=== PATIENT | female | born 1985 | race Caucasian/White ===

== ENCOUNTER 2019-09-14 13:22 | Emergency (ER) | payer BC, SELFPAY ==
[2019-09-14 13:30] VITALS: BP 158/98; PULSE 78; RESP 16; TEMP 36.8; O2SAT 98; BMI 44.4
[2019-09-14 14:59] LABS: Basophils # 0.1 10^3/uL (0.0-0.1); Eosinophils # 0.4 10^3/uL (0.0-0.8); Eosinophils % 3.6 %; Hematocrit 43.5 % (37.0-47.0); Hemoglobin 13.4 g/dL (11.5-15.3); Lymphocytes # 2.2 10^3/uL (0.8-4.8); Lymphocytes % 21.2 %; Mean Corpuscular HGB Conc 30.8 g/dL (30.0-36.0); Mean Corpuscular Hemoglobin 25.7 pg (28.0-34.0); Mean Corpuscular Volume 83.3 fL (81-99); Mean Platelet Volume 9.6 fL (7.4-10.4); Monocytes # 0.5 10^3/uL (0.2-0.9); Monocytes % 4.9 %; Neutrophils # 7.3 10^3/uL (1.8-7.7); Nucleated Red Blood Cells % 0 %; Platelet Count 401 10^3/cmm (130-400); Red Blood Count 5.22 10^6/uL (4.1-5.3); Red Cell Distribution Width 13.4 % (12.1-15.1); White Blood Count 10.5 10^3/uL (4.0-10.0)
--- NOTE | 2019-09-14 15:06 | CTR_ITS ---
PROCEDURE INFORMATION: Exam: CT Abdomen And Pelvis Without Contrast Exam date and time: 09/14/2019 3:09 PM Age: 33 years old Clinical indication: Abdominal pain; Flank; Left; Additional info: Pain left flank, hematuria TECHNIQUE: Imaging protocol: Computed tomography of the abdomen and pelvis without contrast. Total DLP: 1905.81 mGy-cm Radiation optimization: All CT scans at this facility use at least one of these dose optimization techniques: automated exposure control; mA and/or kV adjustment per patient size (includes targeted exams where dose is matched to clinical indication); or iterative reconstruction. COMPARISON: No relevant prior studies available. FINDINGS: Liver: No mass. Gallbladder and bile ducts: Unremarkable. No ductal dilation. Pancreas: Normal. No ductal dilation. Spleen: Normal. No splenomegaly. Adrenals: Normal. No mass. Kidneys and ureters: No calculus or hydronephrosis. Stomach and bowel: No acute findings. No obstruction. No mucosal thickening. Appendix: No evidence of appendicitis. Intraperitoneal space: Unremarkable. No free air. No significant fluid collection. Vasculature: No abdominal aortic aneurysm. Lymph nodes: No significant retroperitoneal adenopathy. Small right lower quadrant mesenteric lymph nodes, none larger than approximately 1 cm. Bladder: Unremarkable as visualized. Reproductive: Unremarkable as visualized. Bones/joints: No acute findings. Soft tissues: Unremarkable. CT/CT kidney stone [id number] IMPRESSION: No acute findings. Radiation Dose CTDIVOL = (mGy): DLP = 1905.81 (mGy-cm)
[2019-09-14 15:19] LABS: Alanine Aminotransferase 15 U/L (0-33); Albumin Level 4.6 g/dL (3.5-5.2); Alkaline Phosphatase 94 IU/L (35-105); Anion Gap 16.1 (5-19); Aspartate Amino Transferase 12 U/L (0-32); Blood Urea Nitrogen 17 mg/dL (6-20); Calcium 9.7 mg/dL (8.5-10.5); Carbon Dioxide 25 mmol/L (22-29); Chloride 99 mmol/L (98-107); Globulin 3.6 g/dL (1.3-4.6); Glomerular Filtration Rate 114.4 mL/min (90-130); Glucose 87 mg/dL (65-115); Potassium 4.1 mmol/L (3.5-5.1); Sodium 136 mmol/L (136-145); Total Bilirubin 0.3 mg/dL (0.15-1.2); Total Protein 8.2 g/dL (6.6-8.7)
[2019-09-14] MEDS: ondansetron 2 mg/ML SDV 2 mL 4 MG IVP (15:19)
[2019-09-14] MEDS: sodium chloride 0.9% 1,000 ML 999 ML IV (15:19)
[2019-09-14] MEDS: ketorolac 30 mg/mL INJ IVP (15:19)
--- NOTE | 2019-09-14 15:19 | ED_ITS ---
HPI - General Adult General: Chief complaint: Abdominal Pain Stated complaint: possible kidney stone Time Seen by Provider: 09/14/19 15:02 History of Present Illness: HPI narrative: Patient complains of left flank pain since yesterday. Went to the urgent care today and they found blood in her urine and she is not on her menses. Pain gnawing in her left flank. Has been on antibiotics recently for upper respiratory infection. Recently had a history of group B strep vaginal infection was treated on antibiotics for 6 weeks. MD complaint: Left flank pain Onset (ago): day(s) (1 and half days) Location: back Radiation: non-radiation Severity: severe Severity scale (1-10): 8 Quality: stabbing and aching Pain Consistency: colicky Relieving factors: none Associated symptoms: Deny chest pain, dyspnea, fevers/chills, headache(s), nausea or rash Review of Systems Const: Denies: fever, chills or body aches Eyes: Denies: change in vision or blurry vision ENMT: Denies: throat pain or nasal congestion Card: Denies: chest pain or shortness of breath on exertion Resp: Denies: shortness of breath, productive cough or non-productive cough GI: Reports: other (Flank pain left side); Denies: nausea Musc: Denies: extremity pain Skin/Breast: Denies: rash Neuro: Denies: headache Psych: Denies: anxiety or depression Holland/Lymph: Denies: easy bruising PFS ED PFSH: Social History (Updated 09/11/19 @ 09:16 by Mily Kim LPN) Smoking and tobacco status: former smoker Second hand smoke exposure: No Physical Exam Const: COMMON NORMALS: no apparent distress, average body habitus and oriented x3 HENMT: COMMON NORMALS: normocephalic HEAD & SCALP: normal to inspection and normocephalic FACE & SINUS: normal facial exam Eye: COMMON NORMALS: conjunctivae normal GENERAL EYE: normal appearance of both eyes CONJUNCTIVA: Yes conjunctivae normal Neck/C-Spine: COMMON NORMALS: no JVD Chest: COMMONS NORMALS: inspection of chest normal Resp: COMMON NORMALS: normal respiratory effort and clear to auscultation b ilaterally AUSCULTATION: clear to auscultation bilaterally Cardio: COMMON NORMALS: no JVD, regular rate and regular rhythm RATE: regular rate RHYTHM: regular rhythm GI: COMMON NORMALS: normal to inspection, nondistended, normoactive bowel sounds Back/Pelvis: OTHER: tenderness to percussion left flank Extremity: COMMON NORMALS: normal to inspection and full ROM Neuro: COMMON NORMALS: oriented x3 Course Vital Signs: Vital signs: Vital Signs Temperature 98.3 F 09/14/19 13:30 Pulse Rate 78 09/14/19 13:30 Respiratory Rate 16 09/14/19 13:30 Blood Pressure 158/98 09/14/19 13:30 Pulse Oximetry 98 09/14/19 13:30 MDM - General Adult MDM Narrative: Medical decision making narrative: Patient states she is doing much better since she has had her Toradol injection. She now relates that that she have a history of back pain bulging disc. And this thinks she might injure that doing some lifting. She is to follow-up with [facility] over [facility] no heavy lifting. Lab Data: Labs: Lab Results 09/14/19 09/14/19 09/14/19 Range/Units 14:49 14:49 15:25 WBC 10.5 H (4.0-10.0) 10^3/ uL RBC 5.22 (4.1-5.3) 10^6/u L Hgb 13.4 (11.5-15.3) g/dL Hct 43.5 (37.0-47.0) % MCV 83.3 (81-99) fL MCH 25.7 L (28.0-34.0) pg MCHC 30.8 (30.0-36.0) g/dL RDW 13.4 (12.1-15.1) % Plt Count 401 H (130-400) 10^3/c mm MPV 9.6 (7.4-10.4) fL Neut % (Auto) 69.0 % Lymph % (Auto) 21.2 % [place] % (Auto) 4.9 % Eos % (Auto) 3.6 % Baso % (Auto) 1.0 % Neut # (Auto) 7.3 (1.8-7.7) 10^3/u L Lymph # (Auto) 2.2 (0.8-4.8) 10^3/u L [place] # (Auto) 0.5 (0.2-0.9) 10^3/u L Eos # (Auto) 0.4 (0.0-0.8) 10^3/u L Baso # (Auto) 0.1 (0.0-0.1) 10^3/u L Nucleated RBC % (a uto) 0 % Nucleated RBCs # 0.0 /100WBC Sodium 136 (136-145) mmol/L Potassium 4.1 (3.5-5.1) mmol/L Chloride 99 (98-107) mmol/L Carbon Dioxide 25 (22-29) mmol/L Anion Gap 16.1 (5-19) BUN 17 (6-20) mg/dL Creatinine 0.6 (0.5-0.9) mg/dL GFR Calculation 114.4 (90-130) mL/min Glucose 87 (65-115) mg/dL Calcium 9.7 (8.5-10.5) mg/dL Total Bilirubin 0.3 (0.15-1.2) mg/dL AST 12 (0-32) U/L ALT 15 (0-33) U/L Alkaline Phosphata se 94 (35-105) IU/L Total Protein 8.2 (6.6-8.7) g/dL Albumin 4.6 (3.5-5.2) g/dL Globulin 3.6 (1.3-4.6) g/dL HCG, Qual Negative (Negative) Urine Color (Yellow) Urine Appearance (CLEAR) Urine pH (5-7) Ur Specific Gravit y (1.005-1.030) Urine Protein (Negative) Urine Glucose (UA) (Normal) Urine Ketones (Negative) Urine Blood (Negative) Urine Nitrate (Negative) Urine Bilirubin (NEGATIVE) Urine Urobilinogen (Negative) mg/dL Ur Leukocyte Jie ase (Negative) Urine RBC (0-2) /hpf Urine WBC (0-5) /hpf Ur Squamous Epith Cells (0-5) Urine Bacteria (NONE) 09/14/19 Range/Units 15:25 WBC (4.0-10.0) 10^3/ uL RBC (4.1-5.3) 10^6/u L Hgb (11.5-15.3) g/dL Hct (37.0-47.0) % MCV (81-99) fL MCH (28.0-34.0) pg MCHC (30.0-36.0) g/dL RDW (12.1-15.1) % Plt Count (130-400) 10^3/c mm MPV (7.4-10.4) fL Neut % (Auto) % Lymph % (Auto) % [place] % (Auto) % Eos % (Auto) % Baso % (Auto) % Neut # (Auto) (1.8-7.7) 10^3/u L Lymph # (Auto) (0.8-4.8) 10^3/u L [place] # (Auto) (0.2-0.9) 10^3/u L Eos # (Auto) (0.0-0.8) 10^3/u L Baso # (Auto) (0.0-0.1) 10^3/u L Nucleated RBC % (a uto) % Nucleated RBCs # /100WBC Sodium (136-145) mmol/L Potassium (3.5-5.1) mmol/L Chloride (98-107) mmol/L Carbon Dioxide (22-29) mmol/L Anion Gap (5-19) BUN (6-20) mg/dL Creatinine (0.5-0.9) mg/dL GFR Calculation (90-130) mL/min Glucose (65-115) mg/dL Calcium (8.5-10.5) mg/dL Total Bilirubin (0.15-1.2) mg/dL AST (0-32) U/L ALT (0-33) U/L Alkaline Phosphata se (35-105) IU/L Total Protein (6.6-8.7) g/dL Albumin (3.5-5.2) g/dL Globulin (1.3-4.6) g/dL HCG, Qual (Negative) Urine Color Yellow (Yellow) Urine Appearance Clear (CLEAR) Urine pH 5 (5-7) Ur Specific Gravit y 1.015 (1.005-1.030) Urine Protein Neg (Negative) Urine Glucose (UA) Norm (Normal) Urine Ketones Negative (Negative) Urine Blood 2+ H (Negative) Urine Nitrate Negative (Negative) Urine Bilirubin Neg (NEGATIVE) Urine Urobilinogen Norm (Negative) mg/dL Ur Leukocyte Jie ase Negative (Negative) Urine RBC 0-4 H (0-2) /hpf Urine WBC None (0-5) /hpf Ur Squamous Epith Cells 5-10 H (0-5) Urine Bacteria Trace (NONE) Discharge Plan Discharge Patient Disposition: Home, Self-Care Clinical Impression: Back pain Qualifiers: Back pain location: low back pain Chronicity: acute Back pain laterality: left Sciatica presence: with sciatica Sciatica laterality: sciatica of left side Qualified Code(s): M54.42 - Lumbago with sciatica, left side Condition: Stable Prescriptions: New ketorolac 10 mg tablet 10 mg PO Q8H PRN (Reason: pain) 5 Days Qty: 14 RF: 0 No Action amoxicillin 500 mg capsule 500 mg PO Q8H 10 Days Qty: 30 RF: 0 albuterol sulfate 90 mcg/actuation HFA aerosol inhaler 2 inh INHALATION Q4H PRN (Reason: shortness of breath or wheezing) Qty: 18 RF: 2 albuterol sulfate 1.25 mg/3 mL solution for nebulization 1.25 mg INHALATION QID PRN (Reason: shortness of breath or wheezing) Qty: 75 RF: 1 Discharge Orders: Discharge Order (Routine); Ordered 09/14/19 Ordered By: Nathan Huber Referrals: Teri Elliott FNP [Primary Care Provider] - Discharge Diet: Usual diet Discharge Activity: Increase activity as tolerated Patient Instructions: Back Pain (ED) Activity Restrictions/Additional Instructions: Follow-up with medical provider as directed. Take medications as prescribed. Return to the ER or your medical provider if condition worsens. Please read and understand discharge instructions. If any questions ask please. Follow-up clinic [place] concerning her back if it does not improve. Coding Level of Care Code ED Hand Ii Blocker for Jettg Fwd Exam Comprehensive
[2019-09-14 15:33] LABS: Bilirubin Urine Neg (NEGATIVE); Blood Urine 2+ (Negative); Glucose Urine UA Norm (Normal); HCG Qualitative Urine. Negative (Negative); Ketones Urine Negative (Negative); Leukocyte Esterase Urine Negative (Negative); Nitrate Urine Negative (Negative); Protein Urine Neg (Negative); Specific Gravity, Urine 1.015 (1.005-1.030); Urine Appearance Clear (CLEAR); Urine Color Yellow (Yellow); Urobilinogen Urine Norm (Negative); pH Urine 5 (5-7)
[2019-09-14 15:40] LABS: Bacteria Urine TRACE; RBC Urine 0-4 /hpf (0-2)
[2019-09-14 15:41] LABS: Add Urine Culture? No
[2019-09-14 17:14] VITALS: BP 128/93; PULSE 75; RESP 18; TEMP 36.4; O2SAT 95
== END 2019-09-14 17:16 | disposition home or self-care (01) ==
PROVIDERS: Emergency Medicine; Emergency Provider Nurse Practitioner Family; PCP Nurse Practitioner Family
DX: M54.9 Dorsalgia, unspecified (principal); Z87.891 Personal history of nicotine dependence
CPT/HCPCS: 36415; 74176; 80053; 81001; 81003; 81025; 85025; 96360; 96361; 96374; 96375; 99283; A9270; J1885; J2405; J7030

== ENCOUNTER 2019-09-20 14:46 | Outpatient (CLI) | payer BC, SELFPAY ==
--- NOTE | 2019-09-20 14:58 | XR_ITS ---
WS: [id number] Lumbar spine, 3 views, 09/20/2019 Clinical Data: back pain Comparison: None. Findings: No compression fractures or subluxation is seen. No disc space narrowing is seen. The transverse proc esses and SI joints are normal. XR/XR lumbar spine 2-3V* [id number] Impression: Negative lumbar spine.
== END 2019-09-20 14:47 | disposition home or self-care (01) ==
LOC: RAD 14:49
PROVIDERS: PCP Nurse Practitioner Family; Visit Provider Nurse Practitioner Family
DX: S39.012A Strain of muscle, fascia and tendon of lower back, initial encounter (principal); X58.XXXA Exposure to other specified factors, initial encounter
CPT/HCPCS: 72100

== ENCOUNTER → 2020-06-30 15:36 | Outpatient (BNVA) | payer BC, SELFPAY | PROVIDERS: Family Provider Nurse Practitioner Family; PCP Nurse Practitioner Family; Visit Provider Nurse Practitioner Family | DX: M54.9 Dorsalgia, unspecified (principal) | CPT/HCPCS: 81000 ==

== ENCOUNTER 2020-09-14 13:58 | Emergency (ER) | payer BC, SELFPAY ==
--- NOTE | 2020-09-14 14:01 | ECG_ITS ---
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 Measurements Intervals [place] Rate: 73 P: -14 CO: 131 QRS: 14 QRSD: 89 T: -7 QT: 387 QTc: 428 Interpretive Statements SINUS RHYTHM No previous ECG available for comparison Electronically Signed On 09-15-2020 5:56:42 CHOCOLATE MAKER by Elizabeth Woodward M.D. [email or web address]
--- NOTE | 2020-09-14 14:01 | XR_ITS ---
WS: [id number] Exam: XR chest 1V portable [id number] Date/Time of Exam: 09/14/2020 2:01 PM Reason For Exam: chest pain No priors. Findings: The lungs are clear and fully expanded. Costophrenic angles are sharp. No infiltrates. Bronchovascula r relief appears normal. Cardiac silhouette is unremarkable. Bony elements are intact. XR/XR chest 1V portable [id number] IMPRESSION: Unremarkable chest radiograph.
[2020-09-14 14:27] VITALS: BP 135/89; PULSE 79; RESP 14; TEMP 36.5; O2SAT 99; BMI 47.9
--- NOTE | 2020-09-14 15:51 | ED_ITS ---
HPI - Chest Pain General: Chief Complaint: Chest Pain Stated Complaint: Chest pain, SOB, pain in left arm Time Seen by Provider: 09/14/20 15:51 Source: patient Mode of arrival: ambulatory Limitations: no limitations History of Present Illness: HPI narrative: Patient is a nice 34-year-old female who presents to ED today along with her for complaints of some left arm pain and chest pain. Patient tells me yesterday she began noticing a burning sensation to her left shoulder and left upper arm. She states she had not had any injury or trauma to the arm. She denies neck pain. She states pain seems to be worse with range of motion of her shoulder. She also later that evening began noticing some tightness on both sides of her chest. Patient tells me she does have a history of asthma and is not sure symptoms are related to that. She tells me she is on albuterol and antibiotics for asthma exacerbation/bronchitis. Patient was seen by PCP today for the arm pain and referred to the emergency department for cardiac rule out. Patient denies any previous cardiac or pulmonary history apart from the asthma. She has not noticed any redness, swelling, temperature changes to her upper extremity. She has not been running fevers. She denies any difficulty breathing. MD complaint: chest pain and other (L arm pain) Onset (ago): day(s) (yesterday) Timing of current episode: constant Prior episodes: No Onset: during rest Pain location: left chest and right chest Pain radiation: left arm Severity: mild Quality: tightness Relieving factors: nothing Associated symptoms: Reports no associated symptoms and dyspnea; Deny abdominal pain, fever(s), nausea, palpitations, syncope or vomiting Treatment prior to arrival: aspirin Review of Systems Const: Denies: fever(s), chills, body aches, fatigue or malaise Eyes: Denies: change in vision or blurry vision Card: Reports: chest pain; Denies: palpitations, irregular heart rhythm, edema, swelling of feet/ankles, lightheadedness, syncope, pre-syncope, dyspnea on exertion, orthopnea, leg pain with exertion or acrocyanosis Resp: Reports: dyspnea and non-productive cough; Denies: wheezing or hemoptysis GI: Denies: abdominal pain, nausea, vomiting or diarrhea Musc: Reports: extremity pain (L arm/shoulder) and joint pain; Denies: neck pain, back pain, extremity swelling or joint swelling Skin/Breast: Denies: rash Neuro: Denies: headache(s), numbness in extremities, weakness in extremities or sensory changes PFSH ED PFSH: Medical History Asthma Social History Smoking and tobacco status: former smoker Second hand smoke exposure: No Physical Exam Const: COMMON NORMALS: no acute distress, patient oriented x3, no limitations and alert GENERAL APPEARANCE: cooperative NUTRITIONAL APPEARANCE: obese ORIENTATION/CONSCIOUSNESS: Yes awake, Yes oriented to person, Yes oriented to place and Yes oriented to time HENMT: COMMON NORMALS: normocephalic and atraumatic HEAD & SCALP: normocephalic and atraumatic Neck/C-Spine: COMMON NORMALS: full ROM, no lymphadenopathy and no meningeal signs CERVICAL SPINE: Yes cervical ROM normal, No pain with cervical ROM, No Cervical spine tenderness and No Paracervical muscle tenderness OTHER: negative Spurling's Chest: COMMONS NORMALS: normal inspection of the chest and normal palpation of entire chest wall Resp: COMMON NORMALS: normal respiratory effort and clear to auscultation bilaterally AUSCULTATION: clear to auscultation bilaterally Cardio: COMMON NORMALS: regular rate and regular rhythm RATE: regular rate RHYTHM: regular rhythm Extremity: COMMON NORMALS: normal to inspection and full ROM NARRATIVE EXTREMITY EXAM: has some mild tenderness to glenohumeral joint; has full ROM but does elicit some pain; there is no swelling/redness noted; pulses and cap refill normal GENERAL: Yes normal exam except as noted Neuro: COMMON NORMALS: patient oriented x3, moves all extremities, no focal motor deficits and no sensory deficits noted SENSORIUM/ORIENTATION: Yes alert, Yes oriented to person, Yes oriented to place and Yes oriented to time MENINGEAL SIGNS: Yes no meningeal signs Skin: COMMON NORMALS: no rashes or lesions noted GENERAL SKIN EXAM: no rashes or lesions noted Course Vital Signs: Vital signs: Vital Signs Temperature 97.7 F 09/14/20 14:27 Pulse Rate 71 09/14/20 17:15 Respiratory Rate 20 H 09/14/20 17:15 Blood Pressure 144/72 09/14/20 17:15 Pulse Oximetry 99 09/14/20 17:15 MDM - Chest Pain MDM Narrative: Medical decision making narrative: Patient's work-up here is benign. Her lab work is non-concerning. Baseline troponin is normal. Given length between onset of symptoms, we do not need to keep patient here for repeat. Patient's initial EKG and repeat EKG showed no ischemic changes. Her CXR is normal. She has a heart score of 1 (risk factor of obesity). Patient is stable for DC with return to ED precautions. She agrees to followup with PCP at this time. Lab Data: Labs: Lab Results 09/14/20 09/14/20 09/14/20 Range/Units 16:12 16:12 16:12 WBC 9.8 (4.0-10.0) 10^3/ uL RBC 4.72 (4.1-5.3) 10^6/u L Hgb 12.7 (11.5-15.3) g/dL Hct 40.8 (37.0-47.0) % MCV 86.4 (81-99) fL MCH 26.9 L (28.0-34.0) pg MCHC 31.1 (30.0-36.0) g/dL RDW 14.2 (12.1-15.1) % Plt Count 367 (130-400) 10^3/c mm MPV 9.7 (7.4-10.4) fL Neut % (Auto) 68.3 % Lymph % (Auto) 20.9 % [place] % (Auto) 5.9 % Eos % (Auto) 3.6 % Baso % (Auto) 1.1 % Neut # (Auto) 6.68 (1.8-7.7) 10^3/u L Lymph # (Auto) 2.1 (0.8-4.8) 10^3/u L [place] # (Auto) 0.6 (0.2-0.9) 10^3/u L Eos # (Auto) 0.4 (0.0-0.8) 10^3/u L Baso # (Auto) 0.1 (0.0-0.1) 10^3/u L Nucleated RBC % (a uto) 0 % Nucleated RBCs # 0.0 /100WBC Sodium 138 (136-145) mmol/L Potassium 4.1 (3.5-5.1) mmol/L Chloride 104 (98-107) mmol/L Carbon Dioxide 26 (22-29) mmol/L Anion Gap 12.1 (5-19) BUN 17 (6-20) mg/dL Creatinine 0.5 (0.5-0.9) mg/dL GFR Calculation 140.4 H (90-130) mL/min Glucose 86 (65-115) mg/dL Calculated Osmolal ity 287 (285-295) mOsm/k g Calcium 9.1 (8.5-10.5) mg/dL Total Bilirubin 0.2 (0.15-1.2) mg/dL AST 13 (0-32) U/L ALT 19 (0-33) U/L Alkaline Phosphata se 75 (35-105) IU/L Troponin T Baselin e (0-10) ng/L Total Protein 7.0 (6.6-8.7) g/dL Albumin 4.4 (3.5-5.2) g/dL Globulin 2.6 (1.3-4.6) g/dL HCG, Qual Negative (Negative) 09/14/20 Range/Units 16:12 WBC (4.0-10.0) 10^3/ uL RBC (4.1-5.3) 10^6/u L Hgb (11.5-15.3) g/dL Hct (37.0-47.0) % MCV (81-99) fL MCH (28.0-34.0) pg MCHC (30.0-36.0) g/dL RDW (12.1-15.1) % Plt Count (130-400) 10^3/c mm MPV (7.4-10.4) fL Neut % (Auto) % Lymph % (Auto) % [place] % (Auto) % Eos % (Auto) % Baso % (Auto) % Neut # (Auto) (1.8-7.7) 10^3/u L Lymph # (Auto) (0.8-4.8) 10^3/u L [place] # (Auto) (0.2-0.9) 10^3/u L Eos # (Auto) (0.0-0.8) 10^3/u L Baso # (Auto) (0.0-0.1) 10^3/u L Nucleated RBC % (a uto) % Nucleated RBCs # /100WBC Sodium (136-145) mmol/L Potassium (3.5-5.1) mmol/L Chloride (98-107) mmol/L Carbon Dioxide (22-29) mmol/L Anion Gap (5-19) BUN (6-20) mg/dL Creatinine (0.5-0.9) mg/dL GFR Calculation (90-130) mL/min Glucose (65-115) mg/dL Calculated Osmolal ity (285-295) mOsm/k g Calcium (8.5-10.5) mg/dL Total Bilirubin (0.15-1.2) mg/dL AST (0-32) U/L ALT (0-33) U/L Alkaline Phosphata se (35-105) IU/L Troponin T Baselin e 6 (0-10) ng/L Total Protein (6.6-8.7) g/dL Albumin (3.5-5.2) g/dL Globulin (1.3-4.6) g/dL HCG, Qual (Negative) Imaging Data^: CXR: Radiologist's impression: [address] [address] XRay Report Signed Patient: Ann Ovalles Unit #: [id number] : 1985 Age/Sex: 34 / F ADM Date: 09/14/20 Loc: ER Room/Bed: Attending Dr: Ordering Provider/Ordering MD: Noemí Calixto Date of Service: 09/14/20 Procedure(s): XR chest 1V portable [id number] Accession Number(s): [id number] Report Number: [id number] WS: [id number] Exam: XR chest 1V portable [id number] Date/Time of Exam: 09/14/2020 2:01 PM Reason For Exam: chest pain No priors. Findings: The lungs are clear and fully expanded. Costophrenic angles are sharp. No infiltrates. Bronchovascular relief appears normal. Cardiac silhouette is unremarkable. Bony elements are intact. XR/XR chest 1V portable [id number] IMPRESSION: Unremarkable chest radiograph. Dictated By: Campos Chairez DO Signed By: Campos Chairez DO Signed Date/Time: 09/14/20 1433 DD/ 1433 EKG Data^: EKG 1: EKG interpretation date: 09/14/20 EKG interpretation time: 16:19 Interpretation: Sinus rhythm Rate [address] elevation noted EKG was initially signed off by Dr. Cantu upon completion EKG 2: EKG interpretation date: 09/14/20 EKG interpretation time: 16:17 Interpretation: Sinus rhythm No ST/ischemic changes noted No changes from EKG performed earlier on same visit Discharge Plan Discharge Patient Disposition: Home Clinical Impression: Atypical chest pain Condition: Stable Prescriptions: No Action albuterol sulfate 90 mcg/actuation HFA aerosol inhaler 2 inh INHALATION Q4H PRN (Reason: shortness of breath or wheezing) Qty: 18 RF: 2 doxycycline hyclate 100 mg tablet 100 mg PO BID 10 Days Qty: 20 RF: 0 albuterol sulfate 1.25 mg/3 mL solution for nebulization 1.25 mg INHALATION QID PRN (Reason: shortness of breath or wheezing) Qty: 75 RF: 1 multivitamin Tablet 1 tab PO DAILY RF: 0 Aspir-81 81 mg Tablet,Delayed Release (Dr/Ec) 324 mg PO ONCE RF: 0 Aleve 220 mg Tablet 440 mg PO PRN RF: 0 Flovent HFA 110 mcg/actuation HFA aerosol inhaler 2 puff INHALATION BID RF: 0 magnesium oxide 400 mg magnesium Tablet 400 mg PO DAILY RF: 0 apple cider vinegar 1 tab PO DAILY RF: 0 Discharge Orders: Discharge ED (Routine); Ordered 09/14/20 Ordered By: Noemí Calixto Referrals: Teri Elliott FNP [Primary Care Provider] - Patient Instructions: Chest Pain - Noncardiac Activity Restrictions/Additional Instructions: As discussed please follow-up with your primary care provider soon as possible. You may return to the emergency department for worsening chest pain, shortness of breath, difficulty breathing, nausea, sweatiness, or any other concerns you may have. Coding Level of Care Code ED Color Strainer for Chg Fwd Exam Comprehensive
--- NOTE | 2020-09-14 16:01 | ECG_ITS ---
[facility] Test Date: 2020-09-14 Pat Name: Ann Ovalles Department: Room: Gender: Female Disk Grinder: : 1985 Requested By: Noemí Calixto Order Number: [id number] Mary MD: Elizabeth Woodward M.D. Measurements Intervals [place] Rate: 67 P: -13 NE: 139 QRS: 21 QRSD: 94 T: 4 QT: 394 QTc: 417 Interpretive Statements SINUS RHYTHM Compared to ECG 09/14/2020 14:24:53 No significant changes Electronically Signed On 09-15-2020 6:07:28 BEVEL GEAR GENERATOR OPERATOR by Elizabeth Woodward M.D. [id number]
[2020-09-14 16:22] LABS: Basophils # 0.1 10^3/uL (0.0-0.1); Basophils % 1.1 %; Eosinophils # 0.4 10^3/uL (0.0-0.8); Eosinophils % 3.6 %; Hematocrit 40.8 % (37.0-47.0); Hemoglobin 12.7 g/dL (11.5-15.3); Lymphocytes # 2.1 10^3/uL (0.8-4.8); Lymphocytes % 20.9 %; Mean Corpuscular HGB Conc 31.1 g/dL (30.0-36.0); Mean Corpuscular Hemoglobin 26.9 pg (28.0-34.0); Mean Corpuscular Volume 86.4 fL (81-99); Mean Platelet Volume 9.7 fL (7.4-10.4); Monocytes # 0.6 10^3/uL (0.2-0.9); Monocytes % 5.9 %; Neutrophils # 6.68 10^3/uL (1.8-7.7); Neutrophils % 68.3 %; Nucleated Red Blood Cells % 0 %; Platelet Count 367 10^3/cmm (130-400); Red Blood Count 4.72 10^6/uL (4.1-5.3); Red Cell Distribution Width 14.2 % (12.1-15.1); White Blood Count 9.8 10^3/uL (4.0-10.0)
[2020-09-14 16:33] LABS: HCG, Serum Qual Negative (Negative)
[2020-09-14 16:42] LABS: Alanine Aminotransferase 19 U/L (0-33); Albumin Level 4.4 g/dL (3.5-5.2); Alkaline Phosphatase 75 IU/L (35-105); Anion Gap 12.1 (5-19); Aspartate Amino Transferase 13 U/L (0-32); Blood Urea Nitrogen 17 mg/dL (6-20); Calcium 9.1 mg/dL (8.5-10.5); Carbon Dioxide 26 mmol/L (22-29); Chloride 104 mmol/L (98-107); Globulin 2.6 g/dL (1.3-4.6); Glomerular Filtration Rate 140.4 mL/min (90-130); Glucose 86 mg/dL (65-115); Osmolality Calculated 287 mOsm/kg (285-295); Potassium 4.1 mmol/L (3.5-5.1); Sodium 138 mmol/L (136-145); Total Bilirubin 0.2 mg/dL (0.15-1.2)
[2020-09-14 16:47] LABS: Troponin(5th) Baseline 6 ng/L (0-10)
[2020-09-14 16:48] VITALS: PULSE 68; RESP 18; O2SAT 99
[2020-09-14 17:15] VITALS: BP 144/72; PULSE 71; RESP 20; O2SAT 99
== END 2020-09-14 17:16 | disposition home or self-care (01) ==
PROVIDERS: Emergency Provider Physician Assistant; PCP Nurse Practitioner Family
DX: R07.89 Other chest pain (principal); Z79.82 Long term (current) use of aspirin; Z87.891 Personal history of nicotine dependence
CPT/HCPCS: 71045; 80053; 84484; 84703; 85025; 93005; 99283

== ENCOUNTER → 2020-09-17 10:15 | Outpatient (BNVA) | payer BC, SELFPAY | PROVIDERS: PCP Nurse Practitioner Family; Visit Provider Nurse Practitioner Family | DX: N89.8 Other specified noninflammatory disorders of vagina (principal); N85.2 Hypertrophy of uterus; N84.1 Polyp of cervix uteri; N92.1 Excessive and frequent menstruation with irregular cycle; Z12.4 Encounter for screening for malignant neoplasm of cervix | CPT/HCPCS: 87070; 87077; 87184; 87205; 88175 ==

== ENCOUNTER 2020-09-29 11:32 | Outpatient (RCR) | payer BC, SELFPAY | END 2020-10-21 23:59 | disposition home or self-care (01) | LOC: SPT 11:32 | PROVIDERS: PCP Nurse Practitioner Family; Referring Provider Nurse Practitioner Family; Visit Provider Nurse Practitioner Family | DX: N39.41 Urge incontinence (principal) | CPT/HCPCS: 97110; 97161 ==

== ENCOUNTER 2020-10-08 11:10 | Outpatient (CLI) | payer BC, SELFPAY ==
--- NOTE | 2020-10-08 11:30 | MM_ITS ---
WS: [id number] BILATERAL SCREENING DIGITAL MAMMOGRAM WITH CAD HISTORY: Z12.31 - Encounter for screening mammogram for malignant neoplasm of breast COMPARISON: 12/10/2014 Bilateral CC and MLO views submitted. Computer aided detection analyzed. Breast composition: There are scattered areas of fibroglandular density. No suspicious masses, microc alcifications or architectural distortion. Asymmetry in the RIGHT upper-outer quadrant is similar to prior studies. There is a benign lucent centered calcification in the anterior RIGHT breast. Numerous lymph nodes are noted towards the axilla of each breast which are also stable. MM/[place] [id number] IMPRESSION: BI-RADS: 2-Benign FOLLOW UP: 1 Year Follow-up
--- NOTE | 2020-10-08 13:01 | US_ITS ---
WS: [id number] ULTRASOUND PELVIS TECHNIQUE: Transabdominal and transvaginal. ULTRASOUND PELVIS TECHNIQUE: Transabdominal. CLINICAL INFORMATION: N85.2 - Hypertrophy of uterus LMP: ? : No. COMPARISON: FINDINGS: Uterus Orientation: Anteverted. Size: 9.1 cm x 4.6 cm x 4.5 cm. Masses: None. Cervix: Incidental nabothian cysts. Endometrium: Not well evaluated today Adnexa: Normal. Right ovary size: 2.3 cm x 1.9 cm x 1.6 cm. Right ovary volume: 3.7 ccm3. Left ovary size: 2.5 cm x 3.4 cm x 2.1 cm. Left ovary volume: 9.3 ccm3 Free fluid: None. Other findings: None. US/US pelvic with transvaginal IMPRESSION: Technically difficult examination. 1. Uterus and ovaries not well evaluated on the transvaginal imaging. Endometr ium not well seen today. 2. Normal uterus on the transabdominal imaging. 3. Both ovaries are normal in appearance. 4. No free fluid in the cul-de-sac. 5. Incidental nabothian cysts.
== END 2020-10-08 11:11 | disposition home or self-care (01) ==
LOC: RADSHAW 11:12
PROVIDERS: PCP Nurse Practitioner Family; Visit Provider Nurse Practitioner Family
DX: Z12.31 Encounter for screening mammogram for malignant neoplasm of breast (principal); N85.2 Hypertrophy of uterus
CPT/HCPCS: 76830; 76856; 77067; 87070; 87205

== ENCOUNTER → 2020-10-16 16:02 | Outpatient (BNVA) | payer BC, SELFPAY | PROVIDERS: PCP Nurse Practitioner Family; Visit Provider Obstetrics & Gynecology | DX: N93.9 Abnormal uterine and vaginal bleeding, unspecified (principal) | CPT/HCPCS: 83001; 84146; 84443; 85025 ==

== ENCOUNTER → 2020-11-02 09:06 | Outpatient (BNVA) | payer BC, SELFPAY | PROVIDERS: PCP Nurse Practitioner Family; Visit Provider Obstetrics & Gynecology | DX: N93.9 Abnormal uterine and vaginal bleeding, unspecified (principal); R79.89 Other specified abnormal findings of blood chemistry | CPT/HCPCS: 84146 ==

== ENCOUNTER → 2021-02-08 10:49 | Outpatient (BNVA) | payer BC, SELFPAY | PROVIDERS: PCP Nurse Practitioner Family; Visit Provider Nurse Practitioner Family | DX: R05 Cough (principal); R19.7 Diarrhea, unspecified; Z11.52 Encounter for screening for COVID-19; K92.1 Melena | CPT/HCPCS: 87493; 87635 ==

== ENCOUNTER → 2021-02-24 11:04 | Outpatient (BNVA) | payer BC, SELFPAY | PROVIDERS: PCP Nurse Practitioner Family; Visit Provider Nurse Practitioner Family | DX: J06.9 Acute upper respiratory infection, unspecified (principal); Z20.822 Contact with and (suspected) exposure to COVID-19 | CPT/HCPCS: 87635 ==

== ENCOUNTER → 2021-03-02 09:12 | Outpatient (BNVA) | payer BC, SELFPAY | PROVIDERS: PCP Nurse Practitioner Family; Visit Provider Nurse Practitioner Family | DX: R19.7 Diarrhea, unspecified (principal) | CPT/HCPCS: 87493 ==

== ENCOUNTER → 2021-03-15 16:11 | Outpatient (BNVA) | payer BC, SELFPAY | PROVIDERS: PCP Nurse Practitioner Family; Visit Provider Nurse Practitioner Family | DX: R19.7 Diarrhea, unspecified (principal); A04.72 Enterocolitis due to Clostridium difficile, not specified as recurrent; R53.83 Other fatigue; I10 Essential (primary) hypertension; F41.9 Anxiety disorder, unspecified | CPT/HCPCS: 80053; 85025; 87493 ==

== ENCOUNTER → 2022-03-08 14:52 | Outpatient (BNVA) | payer BC, SELFPAY | PROVIDERS: PCP Nurse Practitioner Family; Visit Provider Nurse Practitioner Family | DX: R19.7 Diarrhea, unspecified (principal) | CPT/HCPCS: 87493 ==

== ENCOUNTER → 2022-07-28 09:37 | Outpatient (BNVA) | payer OTHER, SELFPAY | PROVIDERS: PCP Nurse Practitioner Family; Visit Provider Nurse Practitioner Family | DX: N76.4 Abscess of vulva (principal) | CPT/HCPCS: 87070 ==

== ENCOUNTER → 2023-12-29 08:18 | Outpatient (BNVA) | payer OTHER, SELFPAY | PROVIDERS: PCP Nurse Practitioner Family; Visit Provider Nurse Practitioner Family | DX: R53.83 Other fatigue (principal); E78.5 Hyperlipidemia, unspecified; I10 Essential (primary) hypertension; K90.49 Malabsorption due to intolerance, not elsewhere classified | CPT/HCPCS: 80053; 80061; 82785; 84439; 85025; 86001; 86003 ==

== ENCOUNTER → 2024-04-23 11:03 | Outpatient (BNVA) | payer OTHER, SELFPAY | PROVIDERS: PCP Nurse Practitioner Family; Visit Provider Nurse Practitioner Family | DX: Z78.9 Other specified health status (principal) | CPT/HCPCS: 87624 ==

== ENCOUNTER 2024-06-06 13:04 | Outpatient (CLI) | payer OTHER, SELFPAY ==
--- NOTE | 2024-06-06 13:07 | XR_ITS ---
WS: [id number] Left hip, AP view, 06/06/2024 Clinical Data: M25.552 - Pain in left hip Comparison: None. Findings: No fractures or dislocations are seen. The left hip shows no erosion, narrowing, sclerosis, cyst form ation or fragmentation of the left femoral head.. The soft tissues are not remarkable. The adjacent p diane is normal. XR/XR hip LT 1V wo/w pel [id number] Impression: Negative left hip. Tonnis classification: grade 0: normal radiographs
== END 2024-06-06 13:05 | disposition home or self-care (01) ==
LOC: RAD 13:05
PROVIDERS: PCP Nurse Practitioner Family; Visit Provider Nurse Practitioner Family
DX: M25.552 Pain in left hip (principal)
CPT/HCPCS: 73501